=== PATIENT | female | born 1955 | race American Indian/Alaskan Native ===

== ENCOUNTER 2020-09-10 08:04 | Emergency (ER) | payer MEDICARE ==
[2020-09-10] MEDS ORDERED: METOPROLOL TARTRATE 50 MG TAB PO ONE (10:34)
[2020-09-10] MEDS ORDERED: LOSARTAN 50 MG TAB PO ONE (10:36)
[2020-09-10] MEDS: amLODIPine 5 MG TAB PO ONE ×2 (10:42→10:43)
--- NOTE | 2020-09-10 10:42 | Emergency Department Report ---
ED Dizziness HPI - General Chief Complaint: Arrhythmia/Palpitations Stated Complaint: LIGHT HEADED Time Seen by Provider: 09/10/20 10:13 Source: patient Mode of arrival: Wheelchair Limitations: Physical Limitation - History of Present Illness Initial Comments: This is a 65-year-old female who was recently released from this hospital after receiving TPA for acute CVA. Her past medical history includes hypertension, hyperlipidemia. She has been relatively symptom-free. She feels as if she is a little tired from the new medications. This morning she felt lightheadedness. She felt lightheaded when she stood up from a seated position. She currently denies headache, visual changes, chest pain, abdominal pain. She denies numbness or weakness in extremities. She did not take her morning medications. However she has been taking them on a regular basis. MD Complaint: lightheadedness -: Gradual, This morning Timing: gradual onset Description: lightheadedness History of Same: No History of Trauma: No Severity: mild Improves With: remaining still Worsens With: position Associated Symptoms: denies other symptoms - Related Data Previous Rx's Medication Instructions Recorded Last Taken Type Aspirin EC [Halfprin EC] 81 mg PO QDAY #30 tablet. 09/04/20 Unknown Rx AtorvaSTATin [Lipitor] 80 mg PO QHS #60 tablet 09/04/20 Unknown Rx Diclofenac 1% [Diclofenac 1% 1 applic TP BID #1 tube 09/04/20 Unknown Rx topical gel] Losartan [Cozaar] 50 mg PO QDAY #30 tablet 09/04/20 Unknown Rx Metoprolol [Lopressor TAB] 50 mg PO BID #120 tablet 09/04/20 Unknown Rx amLODIPine 5 mg PO DAILY #30 tab 09/04/20 Unknown Rx Allergies Allergy/AdvReac Type Severity Reaction Status Date / Time No Known Allergies Allergy Unverified 09/01/20 22:07 ED Review of Systems ROS: Stated complaint: LIGHT HEADED Other details as noted in HPI Comment: All other systems reviewed and negative Constitutional: denies: fever, malaise Respiratory: denies: cough Cardiovascular: denies: chest pain, palpitations Gastrointestinal: denies: abdominal pain Neurological: denies: headache, numbness, paresthesias ED Past Medical Hx - Past Medical History Previous Medical History?: Yes Hx Hypertension: Yes Hx CVA: Yes Additional medical history: Hyperlipidemia - Surgical History Additional Surgical History: hysterectomy, tonsillectomy - Social History Smoking Status: Never Smoker Substance Use Type: None - Medications Home Medications: Home Medications Medication Instructions Recorded Confirmed Last Taken Type Aspirin EC [Halfprin EC] 81 mg PO QDAY #30 tablet. 09/04/20 Unknown Rx AtorvaSTATin [Lipitor] 80 mg PO QHS #60 tablet 09/04/20 Unknown Rx Diclofenac 1% [Diclofenac 1% 1 applic TP BID #1 tube 09/04/20 Unknown Rx topical gel] Losartan [Cozaar] 50 mg PO QDAY #30 tablet 09/04/20 Unknown Rx Metoprolol [Lopressor TAB] 50 mg PO BID #120 tablet 09/04/20 Unknown Rx amLODIPine 5 mg PO DAILY #30 tab 09/04/20 Unknown Rx ED Physical Exam - General Limitations: Physical Limitation General appearance: alert, in no apparent distress, anxious - Head Head exam: Present: atraumatic, normocephalic - Eye Eye exam: Present: normal appearance - ENT ENT exam: Present: mucous membranes moist - Neck Neck exam: Present: normal inspection, full ROM - Respiratory Respiratory exam: Present: normal lung sounds bilaterally. Absent: respiratory distress, wheezes, rales, rhonchi - Cardiovascular Cardiovascular Exam: Present: regular rate, normal rhythm, normal heart sounds. Absent: systolic murmur, diastolic murmur, rubs, gallop - GI/Abdominal GI/Abdominal exam: Present: soft, normal bowel sounds. Absent: distended, tenderness, guarding, rebound - Extremities Exam Extremities exam: Present: normal inspection - Neurological Exam Neurological exam: Present: alert, oriented X3 - Psychiatric Psychiatric exam: Present: normal affect, normal mood - Skin Skin exam: Present: warm, dry, intact, normal color. Absent: rash ED Course Vital Signs 09/10/20 09/10/20 09/10/20 08:32 10:42 10:43 Temperature 98.2 F Pulse Rate 118 H 82 82 Respiratory 18 Rate Blood Pressure 114/82 114/82 Blood Pressure 200/93 [Right] O2 Sat by Pulse 100 Oximetry 09/10/20 10:44 Temperature Pulse Rate 88 Respiratory Rate Blood Pressure 118/82 Blood Pressure [Right] O2 Sat by Pulse Oximetry ED Medical Decision Making - Lab Data Result diagrams: 09/10/20 10:42 09/10/20 10:42 - EKG Data -: EKG Interpreted by Me EKG shows normal: sinus rhythm, axis, intervals, QRS complexes Rate: tachycardia - EKG Data 09/10/20 10:42 EKG obtained 0818 EKG interpreted by me Sinus tachycardia rate 120 bpm normal axis normal intervals no ST-T signs of ischemia - Medical Decision Making Mrs. Singh is a 65-year-old female who recently was treated with TPA at this facility. I supervised her care in the emergency department at that time. Today she presents with lightheadedness. I suspect adverse effect of medication versus hypertensive urgency. She also had tachycardia throughout her ED inpatient course which I suspect is due to volume contraction as well as anxiety. BMP within normal limits today. According to electronic medical record, blood pressure and heart rate was optimized with amlodipine metoprolol while she was treated on the inpatient service. Patient did have markedly elevated blood pressure this morning. She did not take her home medications today. I did order those medications here today. Today in the ED, BP and HR improved with home meds. Vital Signs - 24 hr 09/10/20 09/10/20 09/10/20 08:32 10:42 10:43 Temperature 98.2 F Pulse Rate 118 H 82 82 Respiratory 18 Rate Blood Pressure 114/82 114/82 Blood Pressure 200/93 [Right] O2 Sat by Pulse 100 Oximetry 09/10/20 10:44 Temperature Pulse Rate 88 Respiratory Rate Blood Pressure 118/82 Blood Pressure [Right] O2 Sat by Pulse Oximetry Critical care attestation.: If time is entered above; I have spent that time in minutes in the direct care of this critically ill patient, excluding procedure time. ED Disposition Clinical Impression: Hypertensive urgency, Lightheadedness Disposition: DC-01 TO HOME OR SELFCARE Is pt being admited?: No Does the pt Need Aspirin: No Condition: Stable Instructions: Hypertension (ED), Lightheadedness (ED) Referrals: [facility]ANTASMA VÁSQUEZ [Other] - 3-5 Days
[2020-09-10 10:44] VITALS: BP 118/82
[2020-09-10 11:00] LABS: Basophils # (Auto) 0.1 K/mm3 (0.0-0.1); Basophils % (Auto) 1.1 % (0.0-1.8); Eosinophils % (Auto) 0.1 % (0.0-4.3); Hematocrit 35.2 % (30.3-42.9); Hemoglobin 12.4 gm/dl (10.1-14.3); Lymphocytes # (Auto) 1.2 K/mm3 (1.2-5.4); Lymphocytes % (Auto) 18.1 % (13.4-35.0); Mean Corpuscular HGB Conc 35 % (30-34); Mean Corpuscular Volume 91 fl (79-97); Monocytes # (Auto) 0.7 K/mm3 (0.0-0.8); Monocytes % (Auto) 9.8 % (0.0-7.3); Platelet Count 380 K/mm3 (140-440); Red Blood Count 3.86 M/mm3 (3.65-5.03); Red Cell Distribution Width 13.6 % (13.2-15.2)
[2020-09-10 11:15] LABS: BUN/Creatinine Ratio 16; Blood Urea Nitrogen 11 mg/dL (7-17); Calcium 9.1 mg/dL (8.4-10.2); Hemolysis Index 2
[2020-09-10] MEDS ORDERED: ASPIRIN 325 MG TAB ONE (11:35)
== END 2020-09-10 13:23 | disposition home or self-care (01) ==
LOC: ED 08:04
DX: I16.0 Hypertensive urgency (principal); R42 Dizziness and giddiness; I10 Essential (primary) hypertension; E78.5 Hyperlipidemia, unspecified; Z86.73 Personal history of transient ischemic attack (TIA), and cerebral infarction without residual deficits; Z79.899 Other long term (current) drug therapy; Z90.49 Acquired absence of other specified parts of digestive tract; Z90.710 Acquired absence of both cervix and uterus
CPT/HCPCS: 36415; 80048; 85025; 93005